=== PATIENT | female | born 1940 | race Caucasian/White ===

== ENCOUNTER 2018-01-15 19:44 | Emergency (ER) | payer OTHER, MEDICAID ==
[~2018-01-15] VITALS: Ht 149.9 cm; Wt 74.4 kg
[2018-01-15 20:01] VITALS: Ht 149.9 cm; Wt 74.4 kg
[2018-01-15 21:52] VITALS: BP 149/78
== END 2018-01-15 21:53 | disposition home or self-care (01) ==
LOC: ED 19:44
DX: H92.03 Otalgia, bilateral (principal); I10 Essential (primary) hypertension; E11.9 Type 2 diabetes mellitus without complications; J45.909 Unspecified asthma, uncomplicated; Z88.0 Allergy status to penicillin